=== PATIENT | female | born 1995 | race American Indian/Alaskan Native ===

== ENCOUNTER 2019-02-09 10:04 | Outpatient (CLI) | payer OTHER ==
[2019-02-09 10:55] VITALS: BP 108/79
[2019-02-09 11:18] LABS: Bacteria,Urine 1+ /HPF (Negative); Bilirubin,Urine NEG (Negative); Blood,Urine NEG (Negative); Color,Urine Yellow (Yellow); Mucus,Urine 3+ /HPF; WBC,Urine < 1.0 /HPF (0.0-6.0)
[2019-02-09] MEDS ORDERED: LACTATED RINGERS 500 ML IV ONE (11:59)
== END 2019-02-09 11:39 | disposition home or self-care (01) ==
LOC: TRG 10:04
PROVIDERS: ATTEND Obstetrics & Gynecology
DX: O26.892 Other specified pregnancy related conditions, second trimester (principal); R25.2 Cramp and spasm; Z3A.27 27 weeks gestation of pregnancy
CPT/HCPCS: 59025; 81001

== ENCOUNTER 2019-05-02 05:19 | Inpatient (IN) | payer OTHER ==
--- NOTE | 2019-04-25 17:15 | History and Physical Report ---
History of Present Illness Date of examination: 04/25/19 Date of admission: 05/02/19 Chief complaint: here for cs History of present illness: Pt presents for repeat c/s. All risk, benefits and alternatives have been d/w and allq uestions have been addressed and answered. Consents signed and to be placed on the chart. EDC Calculations LMP: 05/09/2019 EDC Confirmation: 05/09/2019 Gestational Age: 20 2/7 weeks Past History : 2 Term Births: 1 Premature Births: 0 Living Children: 1 Para: 1 Mult. Births: 0 Prev : 1 Prev. attempt? 0 Aborta: 0 Elect. Ab: 0 Spont. Ab: 0 Ectopics: 0 # 1 Delivery date: 05/04/2018 Weeks Gestation: 39.4 labor: no Delivery type: Anesthesia type: epidural Delivery location: [place] Infant Sex: Female weight: 6# Comments: IOL for cyst on lung. 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 APA aware and recommendations made, pt will send records, WAQAS signed and sent Past Surgical History: c/s 2017 Past Medical History Surgery (Non-field specialist): c/s 2018 Abnormal PAP: negative EDIE Exposure: negative Infertility: negative Uterine Anomaly: negative Uterine Surgery (not C/S): negative Other Gynecologic Problems: negative Family Hx: mgm- htn, breast cancer mother-htn Social Hx: . lives with and child works [employer] denies alcohol, drugs, tobacco Infection History Hx of STD: none HIV Risk Eval: no Hepatitis B Risk Eval: low risk Personal hx. of genital herpes: no Partner hx. of genital herpes: no Rash, Viral, or Febrile illness since last LMP? no Varicella/Chicken Pox Status: Immunized TB Risk: no Infection History Comments: 2016-chlamydia and gonorrhea Genetic History Congenital Heart Defect: Mom: no Dad: no Alexa Disease: Mom: no Dad: no Thalassemia Mom: no Dad: no Neural Tube Defect Mom: no Dad: no Down's Syndrome Mom: no Dad: no Jimi-Sachs Mom: no Dad: no Sickle Cell Disease/Trait Mom: no Dad: no Hemophilia Mom: no Dad: no Muscular Dystrophy Mom: no Dad: no Cystic Fibrosis Mom: no Dad: no Hadley Chorea Mom: no Dad: no Mental Retardation Mom: no Dad: no Fragile X Mom: no Dad: no Other Genetic/Chromosomal Disorder Mom: no Dad: no Child w/other defect Mom: no Dad: no Enviromental Exposures Enviromental Exposures Reviewed Xray Exposure: no Medication, drug, or alcohol use since LMP: no Chemical/Other Exposure: no Exposure to Cat Liter: no Hx of Parvovirus (Fifth Disease): no Occupational Exposure to Children: none Active Medications (reviewed today): PNV () Current Allergies (reviewed today): No known allergies Past History Past Medical History: other (see hpi; anxiety) 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 Negative: distention, tenderness, guarding Genitourinary (Female): Positive: other (deferred) Deep Tendon Reflex Grade: Normal +2 - Obstetrical FHR: auscultation normal Results All other labs normal. Assessment and Plan - Patient Problems (1) Maternal care due to low transverse uterine scar from previous delivery Status: Acute Plan to address problem: -admit -prepare for c/s -consents signed and placed on the chart
[~2019-05-02 05:19] MED LIST: BICITRA ORAL LIQD 30ML PO NR; FAMOTIDINE 20 MG/2 ML INJ IV NR; LACTATED RINGERS 1,000 ML IV SCH; METOCLOPRAMIDE 10 MG/2 ML INJ IV NR; OXYTOCIN 20 UNIT/1000ML DRIP 20 UNITS/1,000 ML BAG IV SCH; ceFAZolin/Water 2 GM/20 ML 2 GM/20 ML SYRINGE IV NR
[2019-05-02 06:42] LABS: Basophils % (Auto) 0.5 % (0.0-1.8); Eosinophils % (Auto) 0.9 % (0.0-4.3); Hematocrit 33.6 % (30.3-42.9); Hemoglobin 11.1 gm/dl (10.1-14.3); Lymphocytes # (Auto) 1.2 K/mm3 (1.2-5.4); Lymphocytes % (Auto) 26.5 % (13.4-35.0); Mean Corpuscular HGB Conc 33 % (30-34); Mean Corpuscular Volume 81 fl (79-97); Monocytes # (Auto) 0.4 K/mm3 (0.0-0.8); Monocytes % (Auto) 8.2 % (0.0-7.3); Platelet Count 150 K/mm3 (140-440); Red Blood Count 4.17 M/mm3 (3.65-5.03); Red Cell Distribution Width 14.9 % (13.2-15.2)
[2019-05-02] MEDS ORDERED: HYDROmorphone 1 MG/1 ML INJ IV PRN ×2 (07:48)
[2019-05-02] MEDS ORDERED: ONDANSETRON 4 MG/2 ML INJ IV PRN (07:48)
--- NOTE | 2019-05-02 07:51 | Anesthesia Consultation ---
Anesthesia Consult and Med Hx Date of service: 05/02/19 - Airway Anesthetic Teeth Evaluation: Good ROM Head & Neck: Adequate Mental/Hyoid Distance: Adequate Mallampati Class: Class II Intubation Access Assessment: Probably Good - Pulmonary Exam CTA: Yes - Cardiac Exam Cardiac Exam: RRR - Pre-Operative Health Status ASA Pre-Surgery Classification: ASA2 Proposed Anesthetic Plan: Spinal - Pulmonary Hx Asthma: Yes (last attact 2015) Hx Respiratory Symptoms: No SOB: No COPD: No Home Oxygen Therapy: No Hx Pneumonia: No Hx Sleep Apnea: No - Cardiovascular System Hx Hypertension: No Hx Coronary Artery Disease: No Hx Heart Attack/AMI: No Hx Angina: No Hx Percutaneous Transluminal Coronary Angioplasty (PTCA): No Hx Cardia Arrhythmia: No Hx Pacemaker: No Hx Internal Defibrillator: No Hx Valvular Heart Disease: No Hx Heart Murmur: No Hx Peripheral Vascular Disease: No - Central Nervous System Hx Neuromuscular Disorder: No Hx Seizures: No CVA: No Hx Back Pain: No Hx Psychiatric Problems: No - Gastrointestinal Hx Ulcer: No Hx Gastroesophageal Reflux Disease: No - Endocrine Hx Renal Disease: No Hx End Stage Renal Disease: No Hx Cirrhosis: No Hx Liver Disease: No Hx Insulin Dependent Diabetes: No Hx Non-Insulin Dependent Diabetes: No Hx Thyroid Disease: No Hx Hypothyroidism: No Hx Hyperthyroidism: No - Hematic Hx Anemia: No Hx Sickle Cell Disease: No - Other Systems Hx Alcohol Use: No Hx Substance Use: No Hx Cancer: No Hx Obesity: No - Additional Comments Anesthesia Medical History Comments: PSH: CSECTION, NO ANESTHESIA COMPLICATIONS
--- NOTE | 2019-05-02 07:51 | Anesthesia Day of Surgery ---
Anesthesia Day of Surgery - Day of Surgery Patient Examined: Yes Patient H&P Reviewed: Yes Patient is NPO: Yes Beta Blockers: No Cardiac Clearance: No Pulmonary Clearance: No Jeovany's Test: N/A
[2019-05-02] MEDS ORDERED: WATER FOR IRRIG STERILE 1,500 ML BOTTLE IR ONE (09:10)
[2019-05-02] MEDS ORDERED: SODIUM CHLORIDE 0.9% IRR 1,500 ML BOTTLE IR ONE (09:10)
[2019-05-02] MEDS ORDERED: DEXMEDETOMIDINE 200 MCG/2 ML VIAL IV ONE (09:33)
[2019-05-02] MEDS ORDERED: PHENYLEPHRINE/NS 1,000 MCG/10 ML SYRINGE (OR USE) IV ONE (09:33)
[2019-05-02] MEDS ORDERED: ONDANSETRON 4 MG/2 ML INJ ONE (09:55)
--- NOTE | 2019-05-02 10:13 | Operative Report ---
Operative Report Operative Report: Date of procedure: 05/02/2019 Pre-operative diagnosis: Intrauterine uterine at 39 weeks with previo us section and keloid scar Post-operative diagnosis: Same Procedure name(s): Repeat low transverse section with scar revision Surgeon: Donte Herndon MD Social Media Specialist: Anesthesia: Spinal EBL: 900 Complications: None Findings: Patient with thick keloid scar from previous section. Normal uterus tubes and ovaries bilaterally. Female infant weight 6 lbs. 1 oz. Apgars 8 at 1 minute and 9 at 5 minutes Specimen(s): None Procedure: The patient was brought to the operating room. A spinal was placed without any complications. She was then placed in left lateral tilt. Prepped and draped in the usual sterile manner. After testing for adequate anesthesia level, an elliptical incision was made around the keloid previous scar. This scar was then excised. This incision was taken down to the fascia. The fascia was then nicked in the midline. This incision was extended out laterally with Diaz scissors. The fascia was then sharply and bluntly from the underlying rectus muscles. The rectus muscles were bluntly and sharply . The peritoneum was then entered with the surveillance sensor operator's fingers. This incision was spread vertically with care not to damage the bladder below. The bladder flap was then formed sharply and bluntly with Metzenbaum scissors. The Eamon self-retaining tractor was then placed without any difficulty. A transve rse incision was made in lower uterine segment. This incision was extended laterally with the operators fingers. The amniotic sac was then entered bluntly with the surveillance sensor operator's fingers. The was delivered from the vertex position. Bulb suction on the mother's abdomen. Cord was double clamped and cut. The infant was then passed to the nursery personnel who were in attendance. The above scores were given by the nursery personnel. The placenta was then bluntly removed. The uterus was then externalized and wiped clean the remaining products. The uterine incision was closed in layers. The first incision was closed in a locking manner using 0 Vicryl. This was followed by imbricating stitch also with 0 Vicryl. This closure was hemostatic. The bladder flap was copiously irrigated and found to be hemostatic. The pelvis was copiously irrigated and found to be hemostatic. The uterus was then placed back to the patient's abdomen. The retractors were removed. The rectus muscles were inspected and found to be hemostatic. The fascia was then closed in a running manner using 0 Vicryl. This incision was hemostatic irrigation Bovie. The skin was reapproximated with 4-0 Vicryl subcuticularly. The patient tolerated procedure well. Her urine was clear. The was admitted to the well baby nursery. The patient was accompanied to recovery room in good condition. Instrument count correct 3.
--- NOTE | 2019-05-02 10:14 | Post Anesthesia Evaluation ---
- Post Anesthesia Evaluation Patient Participated: Yes Airway Patent: Yes Stable Respiratory Function: Yes Nausea/Vomiting: No Temp > 96.8F: Yes Pain Manageable: Yes Adequeate Hydration: Yes Anesthesia Complications: No Block Receding Appropriately: Yes Patient on Ventilator: No
[2019-05-02] MEDS ORDERED: SIMETHICONE 80 MG CHEW TAB PO PRN (13:47)
[2019-05-02] MEDS ORDERED: HYDROCORTISONE 25 MG RECTAL SUPP PR PRN (13:47)
[2019-05-02] MEDS ORDERED: D5W/LACTATED RINGERS 1,000 ML IV SCH (13:47)
[2019-05-02] MEDS ORDERED: WITCH HAZEL/ GLYCERIN PAD TP PRN (13:47)
[2019-05-02] MEDS ORDERED: LANOLIN/ZINC/DIMETHICONE (LANSINOH) 7 GM TP PRN (13:47)
[2019-05-02] MEDS ORDERED: NALOXONE 0.4 MG/1 ML INJ IV PRN (13:47)
[2019-05-02] MEDS ORDERED: OXYTOCIN 20 UNIT/1000ML DRIP 20 UNITS/1,000 ML BAG IV SCH (13:47)
[2019-05-02] MEDS: KETOROLAC 30 MG/1 ML INJ IV SCH ×2 (14:05→21:45)
[2019-05-02] MEDS: ceFAZolin/NS 1 GM/50 ML 1 GM/50 ML BAG IV SCH ×2 (15:49→23:59)
[2019-05-02 23:14] LABS: Hematocrit 32.4 % (30.3-42.9); Hemoglobin 10.8 gm/dl (10.1-14.3)
[2019-05-03] MEDS: HYDROcodone/ACETAMINOPHEN 5-325 MG TAB PO PRN ×5 (04:32→23:01)
[2019-05-03] MEDS: KETOROLAC 30 MG/1 ML INJ IV SCH ×2 (08:14→08:46)
[2019-05-03] MEDS ORDERED: IBUPROFEN 800 MG TAB PO PRN (10:13)
--- NOTE | 2019-05-03 11:07 | Progress Note ---
Assessment and Plan - Patient Problems (1) delivery delivered Current Visit: Yes Status: Acute Plan to address problem: POD#1 s/p RC/S continue post c/s pathway (2) BMI 27.0-27.9,adult Current Visit: Yes Status: Acute (3) Rh negative, delivered, current hospitalization Current Visit: Yes Status: Acute Plan to address problem: Rhogam w/u in progress Subjective - Subjective Date of service: 05/03/19 Principal diagnosis: POD#1 RC/S Interval history: Standing in room with present holding baby. No complaints, minimal bleeding Patient reports: appetite normal, voiding normally, pain well controlled, flatus, ambulating normally Objective - Vital Signs Latest vital signs: Vital Signs Temp Pulse Resp BP BP Pulse Ox 05/03/19 09:09 98.3 F 75 18 101/65 96 05/03/19 08:46 18 05/03/19 01:21 98.6 F 80 90/61 97 05/02/19 21:39 98.5 F 74 18 97/63 95 05/02/19 16:23 98.7 F 74 20 92/58 74 L 05/02/19 11:30 97.5 F L 72 14 73/47 95 05/02/19 11:20 67 14 90/53 98 Intake and Output 05/02/19 05/03/19 05/03/19 22:59 06:59 14:59 Intake Total 513 790 9513 Output Total 700 400 Balance -290 -160 1050 Intake: IV 50 1050 ANCEF/NS 1 GM/50 ML 1 gm 50 50 In 50 ml @ 100 mls/hr IV Q8H LUCY Rx#:[id number] D5lr 1,000 ml @ 125 mls/ 1000 hr IV DIRECT LUCY Rx#: [id number] Oral 360 240 Output: Urine 700 400 Indwelling Catheter 700 400 Other: Total, Intake Amount 240 240 Total, Output Amount 700 400 - Exam Breasts: Present: normal Cardiovascular: Present: Regular rate Lungs: Present: Clear to auscultation, Normal air movement Abdomen: Present: normal appearance, soft, normal bowel sounds Uterus: Present: fundal height below umbilicus. Absent: tenderness Extremities: Present: normal. Absent: tenderness, edema Incision: Present: normal, dry, intact (no s/i infection or hematoma)
[2019-05-03] MEDS: FERROUS SULFATE 325 MG TAB PO SCH (18:15)
[2019-05-03] MEDS: PRENATAL VIT27-FE FUMARATE-FOLIC ACID VIT TAB PO SCH (18:16)
[2019-05-03] MEDS: MAGNESIUM HYDROXIDE (MOM) ORAL LIQD UDC PO PRN ×2 (23:52)
--- NOTE | 2019-05-04 07:42 | Discharge Summary ---
Providers - Providers Date of Admission: 05/02/19 05:19 Date of discharge: 05/04/19 (Pt desires to go home.) Attending physician: KEREN ADAIR 05/02/19 13:47 Consult to Sales Vice President [CONS] Routine Reason For Exam: Primary care physician: KEREN ADAIR Hospitalization Reason for admission: section (Repeat ) Delivery: Procedure: repeat low transverse Episiotomy: none Laceration: none Incision: normal, dry, intact Other procedures: none complications: none Discharge diagnosis: IUP at term delivered [place] baby: female Hospital course: Pt is a 23 y.o. s/p repeat @ term. She is doing well. Passing flatus, ambulating, and voiding without difficulty. Her incision is dry, intact, open to air. No s/sx of infection and no drainage noted. H/H 10.8/32.4. VSS, fundus firm, minimal lochia rubra noted. She would like Depo injection before leaving hospital and will be using it for BC. Discharge home with instructions. Pt to follow up in 1 week for incision check, and follow up in 4 wks for visit. Condition at discharge: Good Disposition: DC-01 TO HOME OR SELFCARE Plan - Discharge Medications Prescriptions: Ferrous Sulfate [Feosol 325 MG tab] 325 mg PO BID #60 tablet Ibuprofen [Motrin 800 MG tab] 800 mg PO Q6H PRN #30 tablet PRN Reason: Pain oxyCODONE /ACETAMINOPHEN [Percocet 5/325 mg] 1 - 2 tab PO Q4H PRN #20 tablet PRN Reason: Pain, Moderate - Provider Discharge Summary Activity: routine, no sex for 6 weeks, no heavy lifting 4 weeks, no strenuous exercise Diet: routine Instructions: routine Additional instructions: [] Smoking cessation referral if applicable(refer to patient education folder for contact #) [] Refer to [facility]'s [facility] Booklet Call your doctor immediately for: * Fever > 100.5 * Heavy vaginal bleeding ( >1 pad per hour) * Severe persistent headache * Shortness of breath * Reddened, hot, painful area to leg or breast * Drainage or odor from incision. * Keep incision clean and dry at all times and follow doctor's instructions regarding bathing/showering - Follow up plan Follow up: KEREN ADAIR MD [Primary Care Provider] - 7 Days (Congratulations!! Please schedule an appointment for an incision check in 1 week. Schedule a visit in 4 weeks. Keep incision dry, intact. Can wask with mild soap and pat dry when finished cleaning. Take all medications as prescribed. [address] [facility], [id number])
[2019-05-04] MEDS ORDERED: medroxyPROGESTERone ACETATE 150 MG/ML SYRINGE IM NR (09:00)
[2019-05-04] MEDS: HYDROcodone/ACETAMINOPHEN 5-325 MG TAB PO PRN (10:23)
[2019-05-04] MEDS: PRENATAL VIT27-FE FUMARATE-FOLIC ACID VIT TAB PO SCH (10:23)
[2019-05-04] MEDS: FERROUS SULFATE 325 MG TAB PO SCH (10:23)
[2019-05-04 12:15] VITALS: BP 100/72
== END 2019-05-04 12:40 | disposition home or self-care (01) | DRG 766 ==
LOC: APU 05:19 → OB 12:17
PROVIDERS: ADMIT Obstetrics & Gynecology; ATTEND Obstetrics & Gynecology
PROC: 10D00Z1 Extraction of Products of Conception, Low, Open Approach (ICD-10-PCS; principal; 2019-05-02)
PROC: 0HB7XZZ Excision of Abdomen Skin, External Approach (ICD-10-PCS; 2019-05-02)
PROC: 3E0334Z Introduction of Serum, Toxoid and Vaccine into Peripheral Vein, Percutaneous Approach (ICD-10-PCS; 2019-05-04)
DX: O99.52 Diseases of the respiratory system complicating childbirth (principal); O34.211 Maternal care for low transverse scar from previous cesarean delivery; O26.893 Other specified pregnancy related conditions, third trimester; J45.909 Unspecified asthma, uncomplicated; Z37.0 Single live birth; Z3A.38 38 weeks gestation of pregnancy; Z67.21 Type B blood, Rh negative; Z82.49 Family history of ischemic heart disease and other diseases of the circulatory system; Z80.3 Family history of malignant neoplasm of breast
CPT/HCPCS: 36415; 85014; 85018; 85025; 85461; 86850; 86870; 86900; 86901; G0378; C1765; J0690; J1050; J1885; J2370; J2405; J2590; J2765; J2790; J3490; J7120; J7121